=== PATIENT | male | born 1990 | race American Indian/Alaskan Native ===

== ENCOUNTER 2017-09-30 04:10 | Emergency (ER) | payer BC ==
[2017-09-30 04:22] VITALS: BMI 25.4
[2017-09-30 04:24] VITALS: BP 134/84; PULSE 82; RESP 16; TEMP 98.1; O2SAT 97
[2017-09-30] MEDS ORDERED: Oxycodone/Acetaminophen 5/325 mg Tab PO STA (04:43)
--- NOTE | 2017-09-30 04:43 | ED PDOC ---
HPI: Back Time Seen by Provider: 09/30/17 04:28 Chief Complaint (Nursing): Back Pain Chief Complaint (Provider): Back Pain History Per: Patient Additional Complaint(s): Patient is a 27 yo male, no PMH, presents to ED with c/o back pain since . Pt reports possibly heavily lifting as a cause. no bowel or bladder dysfunction. Has taken Advil and tylenol with minimal relief. Past Medical History Reviewed: Nursing Documentation, Vital Signs Vital Signs: Last Vital Signs Temp 98.1 F 09/30/17 04:22 Pulse 82 09/30/17 04:22 Resp 16 09/30/17 04:22 BP 134/84 09/30/17 04:22 Pulse Ox 97 09/30/17 04:22 - Medical History PMH: No Chronic Diseases - Surgical History Surgical History: No Surg Hx - Family History Family History: States: No Known Family Hx - Living Arrangements Living Arrangements: With Family - Social History Current smoker - smoking cessation education provided: No Alcohol: Social Drugs: Denies - Home Medications Home Medications: Ambulatory Orders Medication Instructions Recorded traMADol [Ultram] 50 mg PO Q6 #10 tab 09/30/17 - Allergies Allergies/Adverse Reactions: Allergies Allergy/AdvReac Type Severity Reaction Status Date / Time No Known Allergies Allergy Verified 09/30/17 04:22 Review of Systems ROS Statement: Except As Marked, All Systems Reviewed And Found Negative Musculoskeletal: Positive for: Back Pain Physical Exam - Reviewed Nursing Documentation Reviewed: Yes Vital Signs Reviewed: Yes - Physical Exam Appears: Positive for: Well, Non-toxic, No Acute Distress Head Exam: Positive for: ATRAUMATIC, NORMAL INSPECTION, NORMOCEPHALIC Skin: Positive for: Normal Color, Warm, DRY Eye Exam: Positive for: EOMI, Normal appearance, PERRL ENT: Positive for: Normal ENT Inspection Neck: Positive for: Normal, Painless ROM Cardiovascular/Chest: Positive for: Regular Rate, Rhythm Respiratory: Positive for: CNT, Normal Breath Sounds Gastrointestinal/Abdominal: Positive for: Normal Exam, Bowel Sounds, Soft Back: Positive for: Normal Inspection, Vertebral Tenderness, Muscle Spasm Extremity: Positive for: Normal ROM Neurologic/Psych: Positive for: Alert, Oriented - ECG O2 Sat by Pulse Oximetry: 97 Medical Decision Making Medical Decision Making: T.Spine:IMPRESSION: No acute fractures. Very minor degenerative spondylosis seen at several levels. Pt medicated, reprots feeling well on re-eval. Able to ambulate with steady gait Disposition - Clinical Impression Clinical Impression: Upper back strain - Patient ED Disposition Is Patient to be Admitted: No - Disposition Disposition: Routine/Home Disposition Time: 05:00 Condition: STABLE Prescriptions: traMADol [Ultram] 50 mg PO Q6 #10 tab Instructions: Back Pain (ED) Forms: [employer] (Mauritian)
[2017-09-30] MEDS ORDERED: Oxycodone/Acetaminophen 5/325 mg Tab ONE (04:46)
--- NOTE | 2017-09-30 10:10 | RAD ---
HISTORY: pain COMPARISON: No prior. FINDINGS: BONES: Alignment maintained. No fracture. DISC SPACES: Disc space heights are maintained. Minor degenerative spondylosis with small marginal anterolateral osteophyte formation seen at several levels. SOFT TISSUES: Normal. OTHER FINDINGS: None. IMPRESSION: No acute fractures. Very minor degenerative spondylosis seen at several levels.
== END 2017-09-30 05:48 | disposition home or self-care (01) ==
LOC: H.ER 04:10
DX: S33.5XXA Sprain of ligaments of lumbar spine, initial encounter (principal); X50.9XXA Other and unspecified overexertion or strenuous movements or postures, initial encounter; Y92.89 Other specified places as the place of occurrence of the external cause